=== PATIENT | female | born 1945 | race Caucasian/White ===

== ENCOUNTER 2016-03-16 09:05 | Emergency (ER) | payer MEDICARE, OTHER ==
[~2016-03-16] VITALS: Ht 175.3 cm; Wt 84.0 kg
[~2016-03-16 09:05] MED LIST: CO Q10CA; DILTCD240 PO; GLUC500C3 PO; LEVO75TA3 PO; LOSA50TA PO; ROSU5 PO
[2016-03-16 09:27] VITALS: BP 142/70; PULSE 74; RESP 18; TEMP 98.4; O2SAT 98
[2016-03-16] MEDS ORDERED: ROSU5 PO (09:36)
[2016-03-16] MEDS ORDERED: COQ1100C (09:36)
[2016-03-16] MEDS ORDERED: LEVO75TA3 PO (09:36)
[2016-03-16] MEDS ORDERED: HYZA100T2 PO (09:36)
[2016-03-16] MEDS ORDERED: DILT-64 PO (09:36)
[2016-03-16] MEDS ORDERED: SODIUM CHLOR 0.9% 1000 ML INJ 1,000 ML IV ONE ×2 (09:45→10:30)
--- NOTE | 2016-03-16 09:54 | PD ---
HPI Chief Complaint: Syncope/Near-Syncope Time Seen by Provider: 09:38 Travel History International Travel<30 days: No Contact w/Intl Traveler<30days: No Traveled to known affect area: No History of Present Illness HPI Patient presents with concerns of syncope/near-syncope [place] Reports poor fluid intake. Admits to being out of the sun all day yesterday. States she was exerting herself and when they got back to the car she was bent over and doing her shoes. States she stood up abruptly and sat on the tailgate of her truck when she felt lightheaded and shaky, she leaned back and her witnessed a syncopal/near syncopal episode. Patient does have mild coronary artery disease but denies any chest pain shortness of breath urinary or bowel symptoms. Denies any nausea vomiting diarrhea or fever. Denies any headache. Denies any confusion or postictal state. Denies any history of seizures. Denies any previous syncopal episodes. PFSH Past Medical History Cancer: No Cardiac Catheterization: Yes Cardiovascular Problems: Yes (MVP) Diabetes: No Endocrine: Yes Genitourinary: No Hepatitis: No Hiatal Hernia: No Hypertension: Yes Immune Disorder: No Musculoskeletal: Yes (ARTHRITIS; BACK PROBLEMS) Neurologic: No Psychiatric: No Reproductive: No Respiratory: No Thyroid Disease: Yes Past Surgical History Abdominal Surgery: Yes ([facility]) Appendectomy: Yes Cholecystectomy: Yes Eye Surgery: Yes ([place] CATARACT SX) Gynecologic Surgery: Yes (TUBAL LIGATION) Pacemaker: No Other Surgery: Yes Social History Alcohol Use: Yes (1-2 daily) Tobacco Use: No Allergies-Medications (Allergen,Severity, Reaction): Coded Allergies: Erythromycin (Unverified Allergy, Intermediate, n/v, 08/08/15) Reported Meds & Prescriptions Reported Meds & Active Scripts Active Reported Coq10 (Coenzyme Q10 (Ubidecarenone)) 100 Mg Cap Hyzaar (Losartan-Hydrochlorothiazide) 100-12.5 Mg Tab 1 Tab PO DAILY Crestor (Rosuvastatin Calcium) 5 Mg Tab 5 Mg PO HS Levothyroxine (Levothyroxine Sodium) 75 Mcg Tab 75 Mcg PO DAILY Diltiazem CD 24 HR 240 Mg Caper 240 Mg PO DAILY Review of Systems General / Constitutional: No: Fever Eyes: No: Visual changes HENT: No: Headaches Cardiovascular: No: Chest Pain or Discomfort Respiratory: No: Shortness of Breath Gastrointestinal: No: Abdominal Pain Genitourinary: No: Dysuria Musculoskeletal: No: Pain Skin: No Rash Neurologic: No: Weakness Psychiatric: No: Depression Endocrine: No: Polydipsia Hematologic/Lymphatic: No: Easy Bruising Physical Exam Narrative GENERAL: Well-nourished, well-developed patient. SKIN: Warm and dry. HEAD: Normocephalic. EYES: No scleral icterus. No injection or drainage. NECK: Supple, trachea midline. No JVD or lymphadenopathy. CARDIOVASCULAR: Regular rate and rhythm without murmurs, gallops, or rubs. RESPIRATORY: Breath sounds equal bilaterally. No accessory muscle use. GASTROINTESTINAL: Abdomen soft, non-tender, nondistended. MUSCULOSKELETAL: No cyanosis, or edema. BACK: Nontender without obvious deformity. No CVA tenderness. Data Data Last Documented VS Vital Signs Date Time Temp Pulse Resp B/P Pulse Ox O2 Delivery O2 Flow Rate FiO2 03/16/16 11:15 66 18 141/77 74 18 147/79 71 18 152/81 03/16/16 09:27 98.4 98 Orders Sodium Chlor 0.9% 1000 Ml Inj (Ns 1000 M (03/16/16 09:45) Orthostatic Vital Signs (03/16/16 09:54) Sodium Chlor 0.9% 1000 Ml Inj (Ns 1000 M (03/16/16 10:30) Orthostatic Vital Signs (03/16/16 11:08) MDM Medical Decision Making Medical Screen Exam Complete: Yes Emergency Medical Condition: Yes Differential Diagnosis Vasovagal hypotension, syncope, TIA, seizures, heat exhaustion Narrative Course Assessment and plan discussed with patient and at bedside. Orthostatics much improved with intravenous fluids. Patient feeling much improved Diagnosis Primary Impression: Orthostatic hypotension Patient Instructions: General Instructions Additional Instructions: Rest and fluids this weekend Encourage good hydration, encouraged to follow-up with PCP to assess need for further workup. Med/Other Pt SpecificInfo: No Meds Exist/No RX given Disposition: 01 DISCHARGE HOME Condition: Good Ben Liriano MD Mar 16, 2016 09:53
[2016-03-16 10:28] VITALS: BP_SYST 121; BP_SYST 135; BP_SYST 145; BP_DIAS 71; BP_DIAS 72; BP_DIAS 80; RESP 14; RESP 15; RESP 16
[2016-03-16 11:15] VITALS: BP_SYST 141; BP_SYST 147; BP_SYST 152; BP_DIAS 77; BP_DIAS 79; BP_DIAS 81; RESP 18
== END 2016-03-16 11:48 | disposition home or self-care (01) ==
LOC: PHED 09:05
DX: I95.1 Orthostatic hypotension (principal); I25.10 Atherosclerotic heart disease of native coronary artery without angina pectoris; I10 Essential (primary) hypertension; E07.9 Disorder of thyroid, unspecified; Z86.79 Personal history of other diseases of the circulatory system; Z87.39 Personal history of other diseases of the musculoskeletal system and connective tissue
CPT/HCPCS: 96360; 99284; J7030